=== PATIENT | male | born 1980 | race Caucasian/White ===

== ENCOUNTER 2022-07-19 11:07 | Emergency (ER) | payer OTHER ==
--- NOTE | 2022-07-19 11:47 | XRAY Report ---
PROCEDURE: Chest 1 View X-Ray INDICATIONS: Chest Pain TECHNIQUE: One view of the chest was acquired. COMPARISON: None. FINDINGS: Surgical changes and devices: None. Lungs and pleura: No pleural effusions or pneumothorax. Lungs are clear. Mediastinum: Mediastinal contours appear normal. Heart size is normal. Bones and chest wall: No suspicious bony lesions. Overlying soft tissues appear unremarkable. IMPRESSION: No acute pulmonary process. Reviewed by: Martha James MD on 07/19/2022 11:46 AM [facility] Approved by: Martha James MD on 07/19/2022 11:46 AM [facility] Station ID: [id number]
[2022-07-19] MEDS ORDERED: ASPIRIN CHEW 81 MG TABLET PO STA (11:50)
--- NOTE | 2022-07-19 11:53 | ED Physician Documentation ---
PD HPI CHEST PAIN - Stated complaint Stated Complaint: DIZZY/CHST PX - Chief complaint Chief Complaint: Cardiac - History obtained from History obtained from: Patient - Additional information Additional information: 42-year-old gentleman with history of hypercholesterolemia. Otherwise healthy save a BMI of 43. He has a family history of an unprovoked pulmonary embolism in his father. He felt well yesterday, was able to workout without issue. Last night developed shortness of breath with lightheadedness and some fleeting central chest pains. He feels worse if he sits up. He denies cough. No hemoptysis. No current pedal edema but did notice some pedal edema few months ago but he had twisted his ankle. Review of Systems Constitutional: denies: Fever, Chills, Fatigue Cardiac: reports: Chest pain / pressure. denies: Palpitations, Pedal edema, Calf pain Respiratory: reports: Dyspnea. denies: Cough GI: denies: Abdominal Pain PD PAST MEDICAL HISTORY - Present Medications Home Medications: Ambulatory Orders Medication Instructions Recorded Confirmed Lisinopril [Zestril] 10 mg PO DAILY #30 tablet 07/19/22 Omeprazole 40 mg PO DAILY #30 cap 07/19/22 - Allergies Allergies/Adverse Reactions: Allergies Allergy/AdvReac Type Severity Reaction Status Date / Time No Known Drug Allergies Allergy Verified 07/19/22 11:29 PD ED PE NORMAL - Vitals Vital signs reviewed: Yes (Tachycardic, pulse ox 92 on my exam) - General General: Alert and oriented X 3, No acute distress - HEENT HEENT: PERRL, EOMI - Neck Neck: Supple, no meningeal sign, No bony TTP - Cardiac Cardiac: Other (Tachycardic but regular without murmur) - Respiratory Respiratory: No respiratory distress, Clear bilaterally - Abdomen Abdomen: Non tender - Back Back: No CVA TTP, No spinal TTP - Derm Derm: Normal color, Warm and dry - Extremities Extremities: Other (Trace pitting pedal edema, seems symmetric, no calf tenderness) - Neuro Neuro: Alert and oriented X 3, Normal speech Results - Vitals Vitals: Vital Signs - 24 hr 07/19/22 07/19/22 07/19/22 11:26 13:28 14:14 Temperature 36.4 C L Heart Rate 112 H 89 93 Respiratory 20 18 12 Rate Blood Pressure 186/101 H 136/96 H 146/83 H O2 Saturation 98 97 99 07/19/22 15:59 Temperature Heart Rate 88 Respiratory 18 Rate Blood Pressure 168/103 H O2 Saturation 98 Oxygen O2 Source Room air - EKG (time done) 1131 Rate: Rate (enter#) (108) Rhythm: Sinus tachycardia [place]: RAD Intervals: Normal CO QRS: Normal Ischemia: ST depression, Non specific changes - Labs Labs: Laboratory Tests 07/19/22 07/19/22 07/19/22 11:45 11:45 11:45 WBC 6.5 RBC 5.69 Hgb 16.7 Hct 47.7 MCV 83.8 MCH 29.3 MCHC 35.0 RDW 12.5 Plt Count 214 MPV 9.7 Neut # (Auto) 4.3 Lymph # (Auto) 1.8 [place] # (Auto) 0.4 Eos # (Auto) 0.1 Baso # (Auto) 0.0 Absolute Nucleated RBC 0.00 Nucleated RBC % 0.0 D-Dimer Sodium 135 Potassium 3.7 Chloride 101 Carbon Dioxide 25 Anion Gap 9.0 BUN 11 Creatinine 0.9 Estimated GFR (MDRD) 93 Glucose 96 Calcium 9.7 Total Bilirubin 1.4 H AST 67 H ALT 126 H Alkaline Phosphatase 62 Troponin I High Sens 3.5 B-Natriuretic Peptide Total Protein 7.8 Albumin 5.2 Globulin 2.6 Albumin/Globulin Ratio 2.0 Lipase 30 07/19/22 07/19/22 07/19/22 14:48 14:48 14:48 WBC RBC Hgb Hct MCV MCH MCHC RDW Plt Count MPV Neut # (Auto) Lymph # (Auto) [place] # (Auto) Eos # (Auto) Baso # (Auto) Absolute Nucleated RBC Nucleated RBC % D-Dimer < 200.0 L Sodium Potassium Chloride Carbon Dioxide Anion Gap BUN Creatinine Estimated GFR (MDRD) Glucose Calcium Total Bilirubin AST ALT Alkaline Phosphatase Troponin I High Sens 4.1 B-Natriuretic Peptide 5 Total Protein Albumin Globulin Albumin/Globulin Ratio Lipase PD Medical Decision Making - ED course ED course: 42-year-old gentleman presents with shortness of breath and some fleeting chest pains. He is tachycardic with borderline pulse oximetry and has a sinus tachycardia with a "S1Q3T3" pattern on EKG. Pretest probability for pulmonary embolism is high. ACS is also on the differential. We will bolus him with heparin and start aspirin pending CT angiography. His CT was grossly negative for PE, that said it was a not well timed study with regard to contrast bolus timing. As such we obtained a repeat set of labs including a repeat troponin which was flat, a BNP which was negative, and D- dimer which was also negative. As such PE is ruled out. And I am reassured by the repeat negative troponins. We will start omeprazole for possible reflux given that he does have reflux as his dyspnea is worse when he flat. Departure - Departure Disposition: Home, Self Care Clinical Impression: Dyspnea Qualifiers: Dyspnea type: shortness of breath Qualified Code(s): R06.02 - Shortness of br eath Hypertension Qualifiers: Hypertension type: unspecified Qualified Code(s): I10 - Essential (primary) hypertension Condition: Good Record reviewed to determine appropriate education?: Yes Instructions: ED Dyspnea Shortness of Breath Prescriptions: Omeprazole 40 mg PO DAILY #30 cap Lisinopril [Zestril] 10 mg PO DAILY #30 tablet Comments: You were seen today for shortness of breath. We have ruled out PE, the initial CT was nondiagnostic for small PEs but ruled out a big PE. This was followed by a D-dimer which was negative. We also checked 2 sets of troponins which were negative and a BNP which was normal ruling out congestive heart failure. We are starting some blood pressure medication at a very low dose and also something for stomach acid as that may be contributing to her shortness of breath. Follow-up with your doctor as scheduled. Return for new or worsening symptoms. Discharge Date/Time: 07/19/22 16:25
[2022-07-19] MEDS ORDERED: HEPARIN 25000UNITS/500ML (D5W) 25,000 UNIT/500 ML BAG IV SCH (12:00)
[2022-07-19 12:02] LABS: BASOPHILS % (AUTO) 0.2 %; EOSINOPHILS # (AUTO) 0.1 10^3/uL (0.0-0.7); EOSINOPHILS % (AUTO) 0.8 %; HCT - HEMATOCRIT 47.7 % (42.0-52.0); HGB - HEMOGLOBIN 16.7 g/dL (14.0-18.0); LYMPHOCYTES # (AUTO) 1.8 10^3/uL (1.5-3.5); LYMPHOCYTES % (AUTO) 27.9 %; MEAN CORPUSCULAR HEMOGLOBIN 29.3 pg (27.0-31.0); MEAN CORPUSCULAR VOLUME 83.8 fL (80.0-94.0); MEAN PLATELET VOLUME 9.7 fL (7.4-11.4); MONOCYTES # (AUTO) 0.4 10^3/uL (0.0-1.0); MONOCYTES % (AUTO) 5.4 %; NEUTROPHILS # (AUTO) 4.3 10^3/uL (1.5-6.6); NEUTROPHILS % (AUTO) 65.4 %; PLT - PLATELET COUNT 214 10^3/uL (130-450); RED BLOOD COUNT 5.69 10^6/uL (4.70-6.10); RED CELL DISTRIBUTION WIDTH 12.5 % (12.0-15.0); WHITE BLOOD COUNT 6.5 x10^3/uL (4.8-10.8)
[2022-07-19] MEDS ORDERED: iohexoL-300 100 ML VIAL ONE ×2 (12:13→16:07)
[2022-07-19 12:18] LABS: ALBUMIN 5.2 g/dL (3.2-5.5); BILIRUBIN,TOTAL 1.4 mg/dL (0.2-1.0); CALCIUM 9.7 mg/dL (8.5-10.3); CREATININE 0.9 mg/dL (0.6-1.2); POTASSIUM 3.7 mmol/L (3.5-5.0); TOTAL PROTEIN 7.8 g/dL (6.7-8.2)
--- NOTE | 2022-07-19 14:16 | CT Report ---
PROCEDURE: ANGIO CHEST W/WO INDICATIONS: PE protocol, dyspnea CONTRAST: 80ml omni 300 TECHNIQUE: After the administration of intravenous contrast, 2 mm axial images were acquired from the pulmonary apices to the posterior costophrenic angles during the arterial phase. In addition, 1 mm lung kernel and 5 mm soft tissue kernel reconstructions were performed. 3-dimensional coronal oblique maximum int ensity projection (MIP) reformats, 8 mm axial MIP, and 5 mm coronal and sagittal MPR reformats were t hen performed through the thorax. For radiation dose reduction, the following was used: automated exp osure control, adjustment of mA and/or kV according to patient size. COMPARISON: Chest x-ray 07/19/2022 FINDINGS: Image quality: Injection is suboptimal for evaluation of emboli distal to the main pulmonary artery. Pulmonary arteries: Pulmonary arteries are normal in size, and demonstrate no intraluminal filling d efects to suggest central pulmonary embolism. Distal segmental branches are heterogeneous in appeara nce. Lungs and pleura: Lungs are clear. No pleural effusions or pneumothorax. Central and peripheral ai rways are patent. Mediastinum: Heart size is normal, without pericardial effusion. No mediastinal or hilar adenopathy . Thoracic aorta is normal in caliber and enhancement. Esophagus is normal in caliber, without hiat al hernia. Bones and chest wall: No suspicious bony lesions. Ribs and thoracic spine appear intact throughout. No axillary or supraclavicular adenopathy. The thyroid is normal in size and there are no incident al findings. Abdomen: Visualized upper abdominal solid organs appear normal in the early arterial phase of enhanc ement. IMPRESSION: No central pulmonary embolus. Distal emboli cannot be excluded secondary to injection. CLINICAL RECOMMENDATION STATEMENTS: In patients <35 years with an ITN detected on CT, MRI, or extrathyroidal ultrasound, the Committee re commends further evaluation with dedicated thyroid ultrasound if the nodule is "e1 cm and has no susp icious imaging features, and if the patient has normal life expectancy. In patients "e35 years with an ITN detected on CT, MRI, or extrathyroidal ultrasound, the Committee r ecommends further evaluation with dedicated thyroid ultrasound if the nodule is "e1.5 cm and has no s uspicious imaging features, and if the patient has normal life expectancy. (ACR, 2014) Reviewed by: Martha James MD on 07/19/2022 2:14 PM PST Approved by: Martha James MD on 07/19/2022 2:14 PM PST Station ID: [id number]
[2022-07-19] MEDS ORDERED: SODIUM CHLORIDE 0.9% 1,000 ML IV STA (14:32)
[2022-07-19 15:59] VITALS: BP 168/103
[2022-07-19] MEDS ORDERED: iohexoL-300 100 ML VIAL IVP ONE (19:07)
== END 2022-07-19 16:25 | disposition home or self-care (01) ==
LOC: ED 11:07
DX: R06.02 Shortness of breath (principal); R07.9 Chest pain, unspecified; I10 Essential (primary) hypertension
CPT/HCPCS: 36415; 71045; 71275; 80053; 83690; 83880; 84484; 85025; 85379; 93005; 96374; 96375; 99284; A9270; Q9967; 85730

== ENCOUNTER 2022-08-16 07:40 | Outpatient (CLI) | payer OTHER ==
[2022-08-16 08:08] LABS: ALBUMIN 4.3 g/dL (3.2-5.5); ALBUMIN/GLOBULIN RATIO 1.6 (1.0-2.2); ALKALINE PHOSPHATASE 62 IU/L (42-121); ALT ALANINE AMINOTRANSFERASE 85 IU/L (10-60); AST ASPARTATE AMINOTRANSFERASE 44 IU/L (10-42); BILIRUBIN,TOTAL 1.1 mg/dL (0.2-1.0); BUN - BLOOD UREA NITROGEN 15 mg/dL (6-20); CALCIUM 9.2 mg/dL (8.5-10.3); CARBON DIOXIDE - CO2 26 mmol/L (21-32); CHLORIDE 101 mmol/L (101-111); CHOL/HDL RATIO 4.7 (<5.0); CHOLESTEROL 199 mg/dL; CREATININE 0.9 mg/dL (0.6-1.2); GFR - MDRD 93 (>89); GLUCOSE 97 mg/dL (70-100); HDL CHOLESTEROL 42 mg/dL; LDL CHOLESTEROL,CALCULATED 132 mg/dL; LDL/HDL RATIO 3.1 (<3.6); POTASSIUM 4.1 mmol/L (3.5-5.0); SODIUM 137 mmol/L (135-145); TRIGLYCERIDES 124 mg/dL; VLDL CHOLESTEROL 25 mg/dL
[2022-08-16 08:21] LABS: THYROID STIMULATING HORMONE 1.1 uIU/mL (0.34-5.60)
== END 2022-08-16 07:41 | disposition home or self-care (01) ==
LOC: LAB 07:40
PROVIDERS: ATTEND Physician Assistant
DX: R10.9 Unspecified abdominal pain (principal); Z13.220 Encounter for screening for lipoid disorders; I10 Essential (primary) hypertension; R42 Dizziness and giddiness
CPT/HCPCS: 36415; 80053; 80061; 83721; 84443

== ENCOUNTER 2022-08-25 16:40 | Emergency (ER) | payer OTHER ==
[2022-08-25] MEDS ORDERED: ONDANSETRON 4 MG/2 ML VIAL IVP STA (17:19)
[2022-08-25 17:23] LABS: BASOPHILS % (AUTO) 0.2 %; EOSINOPHILS # (AUTO) 0.1 10^3/uL (0.0-0.7); EOSINOPHILS % (AUTO) 1.1 %; HCT - HEMATOCRIT 45.4 % (42.0-52.0); HGB - HEMOGLOBIN 15.7 g/dL (14.0-18.0); LYMPHOCYTES # (AUTO) 1.8 10^3/uL (1.5-3.5); LYMPHOCYTES % (AUTO) 34.5 %; MEAN CORPUSCULAR HGB CONC 34.6 g/dL (32.0-36.0); MEAN CORPUSCULAR VOLUME 83.9 fL (80.0-94.0); MEAN PLATELET VOLUME 9.4 fL (7.4-11.4); MONOCYTES # (AUTO) 0.3 10^3/uL (0.0-1.0); MONOCYTES % (AUTO) 5.2 %; NEUTROPHILS # (AUTO) 3.1 10^3/uL (1.5-6.6); NEUTROPHILS % (AUTO) 58.8 %; PLT - PLATELET COUNT 217 10^3/uL (130-450); RED BLOOD COUNT 5.41 10^6/uL (4.70-6.10); RED CELL DISTRIBUTION WIDTH 12.1 % (12.0-15.0); WHITE BLOOD COUNT 5.3 x10^3/uL (4.8-10.8)
--- NOTE | 2022-08-25 17:23 | ED Physician Documentation ---
History of Present Illness - Stated complaint Stated Complaint: ABD PX - Chief complaint Chief Complaint: Abd Pain - Additonal information Additional information: 42-year-old male presents to the emergency department for evaluation of interm ittent upper abdominal discomfort. Reports pain is worse when he lays flat. He has had some nausea but no vomiting. Often feels as though he simply has an upset stomach. He is also begun to feel some pain in the right upper quadrant but also left upper quadrant. He states that he feels like he has to defecate more frequently than normal though nothing comes out. Past surgical history most significant for previous appendectomy. He was recently seen in the emergency department for chest pain found to have some abnormal LFTs which he was scheduled to follow-up with his PCP for. pt is reilable historian Review of Systems Constitutional: denies: Fever, Chills GI: reports: Abdominal Pain, Nausea. denies: Vomiting, Constipation, Hematemesis : reports: Reviewed and negative Skin: reports: Reviewed and negative PD PAST MEDICAL HISTORY - Present Medications Home Medications: Ambulatory Orders Medication Instructions Recorded Confirmed Lisinopril [Zestril] 10 mg PO DAILY #30 tablet 07/19/22 Omeprazole 40 mg PO DAILY #30 cap 07/19/22 - Allergies Allergies/Adverse Reactions: Allergies Allergy/AdvReac Type Severity Reaction Status Date / Time No Known Drug Allergies Allergy Verified 08/25/22 16:50 PD ED PE NORMAL - General General: No acute distress, Well developed/nourished (Morbidly obese) - HEENT HEENT: Atraumatic, Moist mucous membranes - Neck Neck: Supple, no meningeal sign, No adenopathy - Cardiac Cardiac: RRR, No murmur - Respiratory Respiratory: No respiratory distress, Clear bilaterally - Abdomen Abdomen: Normal bowel sounds, Soft, Non tender (equivocal murphys; Abdominal exam is limited by body habitus) - Back Back: No CVA TTP, No spinal TTP - Derm Derm: Normal color Results - Vitals Vitals: Vital Signs - 24 hr 08/25/22 08/25/22 08/25/22 16:46 16:50 18:50 Temperature 36.8 C Heart Rate 99 93 89 Respiratory 18 17 16 Rate Blood Pressure 170/93 H 152/85 H 157/85 H O2 Saturation 97 99 96 Oxygen O2 Source Room air - Labs Labs: Laboratory Tests 08/25/22 08/25/22 17:13 17:13 WBC 5.3 RBC 5.41 Hgb 15.7 Hct 45.4 MCV 83.9 MCH 29.0 MCHC 34.6 RDW 12.1 Plt Count 217 MPV 9.4 Neut # (Auto) 3.1 Lymph # (Auto) 1.8 [place] # (Auto) 0.3 Eos # (Auto) 0.1 Baso # (Auto) 0.0 Absolute Nucleated RBC 0.00 Nucleated RBC % 0.0 Sodium 139 Potassium 3.5 Chloride 105 Carbon Dioxide 24 Anion Gap 10.0 BUN 10 Creatinine 0.9 Estimated GFR (MDRD) 93 Glucose 119 H Calcium 9.5 Total Bilirubin 0.8 AST 40 ALT 78 H Alkaline Phosphatase 63 Total Protein 6.9 Albumin 4.3 Globulin 2.6 Albumin/Globulin Ratio 1.7 Lipase 30 - Rads (name of study) abd us Radiology: Final report received (Mild hepatomegaly and hepatic steatosis. Contracted gallbladder. No sonographic evidence of acute cholecystitis or cholelithiasis. No biliary ductal dilation) Abd Ct Radiology: Final report received (No imaging explanation is found for the patient's presenting symptoms.) PD Medical Decision Making - ED course Complexity details: reviewed results, re-evaluated patient, considered differential, d/w patient ED course: 42-year-old male presents to the emergency department for evaluation of upper abdominal discomfort with some nausea but no vomiting this been intermittent for a few weeks. Seen in early July at this ER and found to have abnormal LFTs for which she was assigned a primary doctor for follow-up. Here in the ER today he had some generalized upper abdominal discomfort though no guarding or rebound. It was a nonperitoneal exam. He presents with no fever. He is noted to be modestly hypertensive. I did give him some Zofran which improved the nausea. I did obtain a CBC which per my interpretation is unremarkable. I also obtained electrolytes which show improved LFTs though his ALT is still mildly elevated at 78. With a known history of abnormal LFTs as well as upper abdominal pain a CT of the abdomen was completed which showed no acute findings. An abdominal ultrasound also showed no findings of biliary obstruction or acute cholecystitis. This time the patient is stable for discharge home. I discussed with the p atient that this likely represents gastritis. I would like him to follow closely with his PCP for referral to a GI or surgeon for an EGD. Departure - Departure Disposition: 01 Home, Self Care Clinical Impression: Upper abdominal pain, Fatty liver Condition: Stable Record reviewed to determine appropriate education?: Yes Comments: You came to the emergency department because intermittently for quite some time you have been having some upper abdominal pain. You were previously seen here in early July and found to have abnormal liver function test. Today your liver function tests have improved. You have a normal AST, normal bilirubin and normal lipase. Your ALT remains mildly elevated at 78. Your CBC today was normal. There is no anemia. We did do an abdominal ultrasound and though you do have a fatty liver, there is nothing to suggest biliary obstruction or gallbladder disease. The CT of your abdomen also did not show worrisome findings. I suspect the most likely cause of your symptoms is gastritis. You can continue to take your acid reducers but should follow closely with your primary care doctor. You would benefit from referral to a surgeon or fun house operator for an EGD. Return to the ER with fevers, uncontrolled vomiting, any black or bloody stools
[2022-08-25] MEDS ORDERED: iohexoL-300 100 ML VIAL ONE (17:33)
[2022-08-25 17:37] LABS: ALBUMIN 4.3 g/dL (3.2-5.5); ALBUMIN/GLOBULIN RATIO 1.7 (1.0-2.2); BILIRUBIN,TOTAL 0.8 mg/dL (0.2-1.0); CALCIUM 9.5 mg/dL (8.5-10.3); CREATININE 0.9 mg/dL (0.6-1.2); POTASSIUM 3.5 mmol/L (3.5-5.0); TOTAL PROTEIN 6.9 g/dL (6.7-8.2)
--- NOTE | 2022-08-25 18:23 | Ultrasound Report ---
PROCEDURE: Abdomen Limited INDICATIONS: abnormal LFT TECHNIQUE: Real-time focused scanning was performed of the abdomen, with image documentation. COMPARISON: None. FINDINGS: Liver is enlarged and measures 18.7 cm in length. Diffusely increased liver parenchymal echotexture i s seen, no discrete hepatic lesion. Gallbladder is contracted. Gallbladder wall is near the upper limits of normal measures 3.2 mm in thi ckness. No gallstones. No pericholecystic fluid or sonographic [place]'s sign. There is no intrahepatic biliary ductal dilatation. Common bile that measures 2.7 mm in diameter and is within normal limits. Right kidney measures 12.1 cm in length at 1.9 cm in renal cortical thickness. No hydronephrosis or n ephrolithiasis. Pancreas is poorly visualized due to overlying bowel gas. IMPRESSION: 1. Mild hepatomegaly and hepatic steatosis, no discrete hepatic lesion. 2. Contracted gallbladder. No sonographic evidence of acute cholecystitis or cholelithiasis. 3. No biliary ductal dilatation. Reviewed by: Bunny Limon MD on 08/25/2022 6:22 PM PST Approved by: Bunny Limon MD on 08/25/2022 6:22 PM PST Station ID: [id number]
[2022-08-25] MEDS ORDERED: iohexoL-300 100 ML VIAL IVP ONE (18:33)
--- NOTE | 2022-08-25 18:52 | CT Report ---
PROCEDURE: ABDOMEN/PELVIS W INDICATIONS: RUQ/LUQ abd pain CONTRAST: 100ml Omnipaque 300 TECHNIQUE: After the administration of IV contrast, 5 mm thick sections acquired from the diaphragms to the symp hysis. 5 mm thick coronal and sagittal reformats were acquired. For radiation dose reduction, the f ollowing was used: automated exposure control, adjustment of mA and/or kV according to patient size. COMPARISON: Correlation is made with the abdominal ultrasound, 08/25/2022 FINDINGS: Image quality: Excellent. ABDOMEN: Lung bases: Lung bases are clear. Heart size is normal. Solid organs: Diffuse fatty liver infiltration can be seen. The liver demonstrates normal size and demonstrates no suspicious lesions. The spleen demonstrates enlarged size at 15 cm and demonstrates no suspicious lesions. Accessory splenules can be seen along the splenic hilum and the anterior aspec t of the spleen. Gallbladder is largely decompressed at the time of this study. Biliary system is no n dilated. Pancreas enhances normally. No adrenal nodules. Kidneys demonstrate normal size and enh ancement, without hydronephrosis. Peritoneum and bowel: Bowel loops demonstrate normal wall thickness and caliber. No free fluid or a ir. No appendix can be seen, either normal or abnormal. No focal right lower quadrant inflammatory c hanges are seen. Nodes and vessels: No retroperitoneal or mesenteric adenopathy by size criteria. Aorta and inferior vena cava are normal in size. Miscellaneous: No ventral hernias. PELVIS: Genitourinary: Bladder wall thickness is normal. Miscellaneous: No inguinal adenopathy. Bilateral fat-containing inguinal hernias are seen. Bones: No suspicious bony lesions. No vertebral body compression fractures. Focal L5-S1 degenerati ve change is seen. Milder degenerative changes are seen elsewhere. IMPRESSION: No imaging explanation is found for the patient's presenting symptoms. Additional findings: Fatty liver infiltration Splenomegaly Accessory splenules Focal L5-S1 degenerative change Bilateral fat-containing inguinal hernias Reviewed by: Rob Martin MD on 08/25/2022 5:50 PM [facility] Approved by: Rob Martin MD on 08/25/2022 5:50 PM [facility] Station ID: [id number]
[2022-08-25 19:42] VITALS: BP 150/85
== END 2022-08-25 19:44 | disposition home or self-care (01) ==
LOC: ED 16:40
DX: R10.10 Upper abdominal pain, unspecified (principal); K76.0 Fatty (change of) liver, not elsewhere classified; R74.01 Elevation of levels of liver transaminase levels
CPT/HCPCS: 36415; 74177; 76705; 80053; 83690; 85025; 96374; 99284; Q9967

== ENCOUNTER 2022-08-30 09:50 | Outpatient (CLI) | payer OTHER ==
[2022-08-30 10:15] LABS: BASOPHILS % (AUTO) 0.2 %; EOSINOPHILS # (AUTO) 0.1 10^3/uL (0.0-0.7); EOSINOPHILS % (AUTO) 1.9 %; HCT - HEMATOCRIT 46.8 % (42.0-52.0); HGB - HEMOGLOBIN 16.3 g/dL (14.0-18.0); LYMPHOCYTES % (AUTO) 36.7 %; MEAN CORPUSCULAR HEMOGLOBIN 29.2 pg (27.0-31.0); MEAN CORPUSCULAR HGB CONC 34.8 g/dL (32.0-36.0); MEAN CORPUSCULAR VOLUME 83.7 fL (80.0-94.0); MEAN PLATELET VOLUME 9.4 fL (7.4-11.4); MONOCYTES # (AUTO) 0.3 10^3/uL (0.0-1.0); MONOCYTES % (AUTO) 5.4 %; NEUTROPHILS % (AUTO) 55.4 %; PLT - PLATELET COUNT 220 10^3/uL (130-450); RED BLOOD COUNT 5.59 10^6/uL (4.70-6.10); RED CELL DISTRIBUTION WIDTH 12.2 % (12.0-15.0); WHITE BLOOD COUNT 5.4 x10^3/uL (4.8-10.8)
[2022-08-30 10:38] LABS: ALBUMIN 4.7 g/dL (3.2-5.5); ALBUMIN/GLOBULIN RATIO 1.7 (1.0-2.2); BILIRUBIN,TOTAL 1.2 mg/dL (0.2-1.0); CALCIUM 9.3 mg/dL (8.5-10.3); CREATININE 0.9 mg/dL (0.6-1.2); POTASSIUM 3.9 mmol/L (3.5-5.0); TOTAL PROTEIN 7.5 g/dL (6.7-8.2)
[2022-08-31 05:10] LABS: HBsAG SCREEN Negative (Negative); HEPATITIS B SURFACE AB QUANT 106.4 mIU/mL (Immunity>9.9)
== END 2022-08-30 09:51 | disposition home or self-care (01) ==
LOC: LAB 09:50
PROVIDERS: ATTEND Family Medicine
DX: R94.5 Abnormal results of liver function studies (principal)
CPT/HCPCS: 36415; 80053; 82728; 82977; 83540; 84466; 85025; 86317; 86704; 87340

== ENCOUNTER 2022-10-09 08:45 | Outpatient (CLI) | payer OTHER ==
[2022-10-09 09:29] VITALS: BP 130/82
--- NOTE | 2022-10-09 09:29 | SLEEP CARE CONSULTATION ---
Information from patient questionnaire entered by Silvana Linder. I have reviewed and concur with the information entered by Silvana Linder. This document represents the service I personally performed and the decisions made by me, Ailyn Banuelos ARNP. History of Present Illness Service Date and Time: 10/09/2022 0845 Reason for Visit: New patient, sleep apnea on CPAP therapy Chief Complaint: reports: Other (UPDATE SUPPLIES) Date of Onset: 10YRS Usual bedtime: PM Time it takes to fall asleep: 5-10MIN Snores at night: Yes (when not using CPAP) Observed to quit breathing while asleep: Yes (when not using CPAP) Sleeps alone due to snoring: No Number of times waking at night: 1 Reasons for waking at night: reports: Snoring, Bathroom Toss, Turn, or Twitch while sleeping: Yes Recalls having dreams: Yes Usually gets out of bed at: 630AM Feels refreshed in the morning: Yes Morning headache: No Sleepy or fatigued during the day: No Ever fallen asleep while driving: No Takes day naps: No Year and Where: 2015 [facility] Additional HPI information: STONEY LESTER was previously diagnosed to have unknown, AHI unknown, obstructive sleep apnea-hypopnea syndrome in 2016 at [facility] (records have been r equested) and comes in today to establish care for CPAP therapy. - Parasomnia Symptoms Ever been unable to move upon waking from sleep: No Walks in sleep: No Talks in sleep: No Ever acted out dreams in sleep: No Ever felt weak in the knees when startled or emotional: No Bothered by creepy, crawly, restless sensations in legs: No Problems with memory or concentration: No CPAP Compliance Data - Data Reviewed with Patient Average duration of nightly device use: 7 hours 48 minutes Compliance rate %: 100 (90/90 days used) Current pressure setting (cmH2O): 10-12 Average residual AHI: 0.6 Central apnea: 0 Obstructive apnea: 0.5 Average large leak: 1.6 L/min Compliance data discussion: He states he is getting his supplies from [facility]. He is using a Respironics Nasal cushion Wisp. He has an Airsense 10 setup on 08/2016. He is not sure if the humidifier is working right because it will not always use the water in the chamber. Subjective Patient concerns: denies: aerophagia, mask discomfort, air blowing in eyes, mask leak noise, condensation in mask/hose, nasal congestion, dry mouth, nose, throat, epistaxis Observed to snore while using device: No Current pressure setting perceived as: comfortable On therapy, patient: reports: sleeping better, awakening more refreshed, being more awake and alert during the day, more rested overall. denies: drowsiness while driving Initial Anderson Sleepiness Scale score: 8 (10/08/22) Past Medical History Past Medical History: reports: Hypertension, GERD Social History The patient's occupation is a [employer]. Patient is and lives in [place]. Have you smoked in the past 12 months: No Alcohol use: Yes Alcohol amount and frequency: 1-2 1-2X MONTH Caffeine use: Yes Caffeine amount and frequency: 1 2-3X WEEK Family History Family history of sleep disordered breathing: No Allergies and Home Medications Known drug allergies: No Drug allergies reviewed: Yes Home medication list reviewed: Yes Allergy and home medication list: Allergies No Known Drug Allergies Allergy (Verified 10/08/22 16:08) Medications: Lisinopril 20 mg, daily Prilosec 40 mg, daily Review of Systems Weight loss over past 5 years: 20 Cardiovascular: reports: high blood pressure Gastrointestinal: reports: heartburn, abdominal pain Neurological: reports: headaches Psychiatric: denies: anxiety, depression Ear/Nose/Throat: reports: nasal congestion. denies: tonsillectomy Endocrine: denies: thyroid disease Physical Exam Vital signs obtained and entered by: SILVANA Osborn MA Blood Pressure: 130/82 (LEFT ARM) Cuff size: long Heart Rate: 87 O2 Saturation: 96 Height: 6 ft 1 in Weight: 330 lb 3.2 oz Body Mass Index: 43.5 BMI Classification: Morbidly Obese Neck circumference: 20.75 Mouth and throat: narrow oropharynx Soft palate: long Hard palate: normal Uvula: normal Uvula visualization: 25% Mallampati Class III Tongue: enlarged in size with teeth valentino on lateral edges Tonsils: 1+ Heart: regular rate and rhythm Lungs: clear bilaterally Impression and Plan 1. Obstructive Sleep Apnea-Hypopnea Syndrome, unknown, with good treatment compliance and good apnea control. On CPAP therapy, the patient has better sleep quality and is more rested overall. A copy of his last sleep study was requested. He has an [employer] Airsense 10 that he received in 2017. The patients CPAP is over 5 years old and of reasonable use. Thus, the CPAP will be updated. A DWO prescription will be made once I have his last sleep study to review. Compliance guidelines for new device and follow up discussed. Patient's apnea severity and rationale for treatment to reduce apnea, improve sleep quality and reduce cardiovascular and cerebrovascular events was reviewed. I also reviewed the benefit of consistent device use of CPAP for hypertension and gastric reflux. 2. Obesity, unspecified. Currently patients BMI is 43.5. He states he has lost about 20 lbs in the early part of the year. Obesity increases the risk of apnea, CPAP pressure requirements and overall health risks especially cardiovascular and diabetes. Thus patient is advised to continue to try to lose weight. * Continue auto CPAP pressure at 10-12 cmH2O * Obtain copy of last sleep study * Update machine * Update supplies * Notify me if snoring with mask or feeling that the pressure is too much or too little * Attempt to lose weight * Call this office if any problems using CPAP * Return for follow up one month after obtaining new device, or sooner if concerns arise Counseling Topics: Spare mask, Weight loss health impact Visit Type: In Office Time Spent with Patient (minutes): 30 Provider Statement: I spent 100% of the Face to Face Visit with the patient with greater than 50% spent counseling the patient and coordination of care.
== END 2022-10-09 08:46 | disposition home or self-care (01) ==
LOC: SC 08:45
PROVIDERS: ATTEND Nurse Practitioner Family
DX: G47.33 Obstructive sleep apnea (adult) (pediatric) (principal); E66.01 Morbid (severe) obesity due to excess calories; Z68.41 Body mass index [BMI] 40.0-44.9, adult
CPT/HCPCS: 99203; 99212

== ENCOUNTER 2022-10-23 14:22 | Outpatient (CLI) | payer OTHER | END 2022-10-23 14:23 | disposition home or self-care (01) | LOC: MAC.MOP 14:22 | PROVIDERS: ATTEND Physician Assistant | DX: R06.02 Shortness of breath (principal); R42 Dizziness and giddiness | CPT/HCPCS: 93246 ==

== ENCOUNTER 2022-12-03 10:30 | Outpatient (CLI) | payer OTHER | END 2022-12-03 10:31 | disposition home or self-care (01) | LOC: MAC.INF 10:30 | PROVIDERS: ATTEND Physician Assistant | DX: I45.10 Unspecified right bundle-branch block (principal); I49.1 Atrial premature depolarization; I49.3 Ventricular premature depolarization; R06.02 Shortness of breath; R42 Dizziness and giddiness | CPT/HCPCS: 93248 ==

== ENCOUNTER 2023-03-27 09:09 | Outpatient (CLI) | payer OTHER | END 2023-03-27 09:10 | disposition home or self-care (01) | LOC: DI 09:09 | PROVIDERS: ATTEND Physician Assistant | DX: I45.4 Nonspecific intraventricular block (principal); R06.02 Shortness of breath; R42 Dizziness and giddiness | CPT/HCPCS: 93306 ==

== ENCOUNTER 2024-03-08 12:19 | Outpatient (CLI) | payer OTHER ==
--- NOTE | 2024-03-09 21:40 | SLEEP CARE CONSULTATION ---
Information from patient questionnaire entered by Ralph Bruce. I have reviewed and concur with the information entered by Ralph Bruce. This document represents the service I personally performed and the decisions made by me, Rolando Gutierres MD, [facility]. History of Present Illness Service Date and Time: 03/08/2024 1219 Previous diagnosis: Severe, Obstructive Sleep Apnea-Hypopnea Syndrome AHI: 46.7 Reason for follow up: annual (Last seen 09/2022) Equipment type: CPAP Equipment obtained from: [employer] Mask style: Nasal Prior sleep studies: Yes Year and Where: 2016 [facility] Type of Sleep Study: Polysomnography HPI additional information: Mr. Damon was diagnosed to have obstructive sleep apnea-hypopnea syndrome and was seen today via video telemedicine ([facility]) for follow up of CPAP therapy. The patient purchased the device from [employer] and was fitted with a nasal mask. He continues to use the device nightly and all through the night. The compliance report shows that he uses the device 338 nights out of the past 365 nights, averaging 8.2 hours a night. He complains of no particular problem with the device such as soreness on the face, dry nose, epistaxis, nasal congestion or headache. He thinks that the pressure of 10 - 13 cmH2O is comfortable. On the CPAP therapy he notices improvement in his sleep quality, and that he wakes up feeling fresher in the morning and more awake/alert during the day. His notices rare snore. The average residual AHI is 0.6; and average time in large leak per day is 0 minutes a night. The 90th percentile pressure is 12.4 cmH2O. Sleep Study - Results Type of Sleep Study: Polysomnography Prior sleep studies: Yes Year and Where: 2016 [facility] CPAP Compliance Data - Data Reviewed with Patient Average duration of nightly device use: 8 h 0 min Compliance rate %: 88 Current pressure setting (cmH2O): 10-13 Average residual AHI: 0.5 Subjective Patient concerns: reports: air blowing in eyes (Sometimes), nasal congestion, dry mouth, nose, throat, other (Snore while leaving device sometimes) Current pressure setting perceived as: comfortable Initial [place] Sleepiness Scale score: 8 (10/08/22) Current [place] Sleepiness Scale score: 12 (03/08/24) Allergies and Home Medications Drug allergies reviewed: Yes Home medication list reviewed: Yes Allergy and home medication list: Allergies No Known Drug Allergies Allergy (Verified 10/09/22 08:46) Review of Systems Review of systems same as previous: Yes Physical Exam Vital signs obtained and entered by: N/A Height: 6 ft 1 in Weight: 329 lb 12.984 oz Body Mass Index: 43.4 BMI Classification: Morbidly Obese Impression and Plan IMPRESSION: 1. Obstructive Sleep Apnea-Hypopnea Syndrome, of unknown severity (diagnosed at [facility] long time ago), with the patient continuing to do well on nasal CPAP therapy. He has excellent compliance and significant clinical benefits. The current pressure appears effective and comfortable. Overall, he is very satisfied with treatment and plans to continue with it long- term. No adjustment is necessary today. PLAN: 1. Continue with autoCPAP set at 10 - 13 cm H2O. 2. Try to lose weight 3. Return in one year for follow up or earlier if there is any problem with the treatment. Counseling Topics: Weight control Follow up with Sleep Care in: 1 year Follow up recommended for: Weight management Visit Type: Telehealth Video Patient Location: Home Location of Provider: Office Patient agrees and consents to this telehealth visit type: Yes Patient agrees to have their insurance billed: Yes Provider Statement: I spent 100% of the Telehealth Video Call with the patient with greater than 50% spent counseling the patient and coordination of care.
== END 2024-03-08 12:20 | disposition home or self-care (01) ==
LOC: SC 12:19
PROVIDERS: ATTEND Internal Medicine Pulmonary Disease
DX: G47.33 Obstructive sleep apnea (adult) (pediatric) (principal); E66.01 Morbid (severe) obesity due to excess calories; Z68.41 Body mass index [BMI] 40.0-44.9, adult